=== PATIENT | female | born 1990 | race Caucasian/White ===

== ENCOUNTER 2016-11-03 13:07 | Emergency (ER) | payer MEDICAID ==
[~2016-11-03] VITALS: Ht 172.7 cm; Wt 122.5 kg
[~2016-11-03 13:07] MED LIST: AMOX500C2 PO; CODE-54 PO; FAMO-119 PO; IBP600T1 PO; IBP800T PO; OXYC-12 PO; PNV1TABL9 PO; PREN-115 PO; PROM25TA14 PO; TRM50T PO
--- NOTE | 2016-11-03 15:26 | ED Cough/URI ---
General Chief Complaint: Cough/Cold/Flu Symptoms Stated Complaint: COUGH/CONGESTION/FEVER HEADACHE 28 WKS PREG Nursing Triage Note: PT CO OF COLD COUGH FLU SX SINCE YESTERDAY History of Present Illness Time seen by provider: 15:15 Initial Comments Here with 3-4 day Cough, sore throat, malaise, Sick contacts and fever 102F yesterday. She has taken OTC and APAP. Wants Abx to feel better. She is . No recent Travel or Abx. Allergies and Home Medications Allergies Coded Allergies: No Known Drug Allergies (Unverified , 06/05/12) Home Medications Azithromycin 250 Mg Tablet #6 250 MG PO UD TAKE 2 TABLETS ON DAY ONE THEN TAKE 1 TABLET DAILY FOR FOUR MORE DAYS Prescribed by: IMAN BELTRE on 11/03/16 1552 Famotidine 20 Mg Tablet #10 20 MG PO Q12H Prescribed by: KEYANA PACK on 06/01/162231 Ibuprofen 600 Mg Tab #90 600 MG PO Q6H Prescribed by: VIRI LUNA on 09/14/14 1109 Pnv Cmb#21/Iron/Folic Acid 1 Each Tablet 1 EACH PO (Reported) Promethazine HCl 25 Mg Tablet #10 25 MG PO Q6H PRN PRN NAUSEA/VOMITING Prescribed by: KEYANA PACK on 06/01/162231 Constitutional: No chills, No diaphoresis, fever malaise EENTM: hoarseness nose congestionNo ear discharge, No ear pain, No hearing loss, No mouth pain, No mouth swelling Respiratory: cough (dry)No phlegm, No short of breath, No wheezing Cardiovascular: No chest pain, No edema Gastrointestinal: No abdominal pain, No constipation, No diarrhea, No nausea Genitourinary: No discharge, No dysuria Expected Date of Delivery: January 27, 2017 Skin: No pruritus, No rash Past Jlrvpen-Zkklqt-Qovtsq Hx Patient Social History Alcohol Use: Denies Use Recreational Drug Use: No Smoking Status: Never a Smoker Recent Foreign Travel: No Contact w/Someone Who Travel: No Recent Infectious Disease Expo: No Recent Hopitalizations: Yes (2009 for gb ) Immunizations Up To Date Tetanus Booster (TDap): Less than 5yrs Date of Influenza Vaccine: Aug 03, 2013 Surgeries HX Surgeries: Yes (gavin 2009, D&C) Respiratory Hx Respiratory Disorders: No Cardiovascular Hx Cardiac Disorders: No Neurological Hx Neurological Disorders: No Reproductive System : Yes Hx Reproductive Disorders: No Sexually Transmitted Disease: No HIV/AIDS: No Female Reproductive Disorders: Denies Genitourinary Hx Genitourinary Disorders: No Gastrointestinal Hx Gastrointestinal Disorders: No Musculoskeletal Hx Musculoskeletal Disorders: No Endocrine Hx Endocrine Disorders: No HEENT HX ENT Disorders: No Loss of Vision: Denies Hearing Impairment: Denies Cancer Hx Cancer: No Psychosocial Hx Psychiatric Problems: No Integumentary HX Skin/Integumentary Disorder: No Blood Transfusions Hx Blood Disorders: Yes (low platlets. ) Adverse Reaction to a Blood Tr: No Family Medical History Significant Family History: No Pertinent Family Hx Family Medial History: Cataract MATERNAL GRANDMA Dementia PATERNAL GRANDMA Family history: Arthritis MATERNAL GRANDMA Family history: Asthma 03 FATHER PATERNAL GRANDMA Family history: Diabetes mellitus MATERNAL GRANDMA Family history: Hypertension MATERNAL GRANDMA Hypercholesterolemia MATERNAL GRANDMA No Family History of: Abdominal aortic aneurysm [place]'s disease Alcoholism Aphasia Cancer Cancer of colon Chest pain Congenital heart disease Congestive heart failure Cystic fibrosis Dysphagia Family history: Allergy Family history: Alzheimer's disease Family history: Breast disease Family history: Cardiovascular disease Family history: Coronary thrombosis Family history: Gastrointestinal disease Family history: Glaucoma Family history: Osteoporosis Family history: Thyroid disorder Headache Hearing loss Heart disease Hereditary disease History of - anemia History of - disorder History of - respiratory disease History of drug abuse Human immunodeficiency virus (HIV) seropositivity Infertile Kidney disease Malignant neoplasm of lung Myocardial infarction Parkinson's disease Prostate cancer Psychotic disorder Seizure disorder Stroke Tuberculosis Visual impairment Physical Exam Vital Signs Vital Sign - Last 12Hours 11/03/16 13:20 Temp 97.7 Pulse 101 Resp 18 B/P 111/60 Pulse Ox 98 O2 Delivery Room Air Capillary Refill : Less Than 3 Seconds General Appearance: WD/WN no apparent distress Eyes: Bilateral Eye EOMI, Bilateral Eye Normal Inspection HEENT: TM abnormal (R) (mild injection) pharyngeal erythemaNo tonsillar exudate Neck: non-tender full range of motion supple normal inspection Respiratory: chest non-tender lungs clear normal breath sounds no respiratory distress Cardiovascular: normal peripheral pulses regular rate, rhythm Gastrointestinal: normal bowel sounds non tender soft Skin: normal color warm/dry Progress/Results/Core Measures Results/Orders Micro Results Microbiology 11/03/16 Influenza Types A,B Antigen (TAO) - Final, Complete Vital Signs/I&O Vital Sign - Last 12Hours 11/03/16 11/03/16 11/03/16 13:20 13:20 15:55 Temp 97.7 Pulse 101 94 Resp 18 18 B/P 111/60 Pulse Ox 98 98 O2 Delivery Room Air Blood Pressure Mean: 77 Progress Note : Time: 15:24 Progress Note Typical URI symptoms consistent with virus. Flu was negative. Potential developing right otitis media acute for her scant injection on the right TM. Instructed to wait one or 2 days and if not improving by the third day start antibiotics. Take to completion. Drink plenty of fluids and use conservative therapy. Departure Impression Impression: Primary Impression: Upper respiratory infection Qualified Code: J06.9 - Acute upper respiratory infection, unspecified Disposition: HOME, SELF-CARE Condition: Stable Departure-Patient Inst. Decision time for Depature: 15:49 Referrals: [facility] (PCP/Family) Primary Care Physician Patient Instructions: Cough, Runny Nose, and the Common Cold (DC) Add. Discharge Instructions: You appeared to have a common cold usually this is caused by a virus. you should use vapor rubs, drink plenty of fluids and get a humidifier. Tylenol or Motrin are appropriate if you feel poorly. If this goes on for more than 3 or 4 days then you should fill the antibiotic prescription that was sent for you. If you have new, worsening symptoms you should return to care. Otherwise follow up with your primary care physician as needed. All discharge instructions reviewed with patient and/or family. Voiced understanding. Scripts Azithromycin 250 Mg [id number] Mg PO UD #6 TAB TAKE 2 TABLETS ON DAY ONE THEN TAKE 1 TABLET DAILY FOR FOUR MORE DAYS Prov:IMAN BELTRE 11/03/16 IMAN BELTRE Nov 03, 2016 15:26
[2016-11-03] MEDS ORDERED: AZIT250T5 PO (15:52)
[2016-11-03 15:55] VITALS: BP 114/58
== END 2016-11-03 15:55 | disposition home or self-care (01) ==
LOC: EDUNIT# 13:07 → ER 13:10
DX: O99.513 Diseases of the respiratory system complicating pregnancy, third trimester (principal); J06.9 Acute upper respiratory infection, unspecified; Z3A.28 28 weeks gestation of pregnancy
CPT/HCPCS: 87804; 99283

== ENCOUNTER 2016-12-19 20:37 | Outpatient (CLI) | payer MEDICAID ==
[~2016-12-19] VITALS: Ht 172.7 cm; Wt 124.3 kg
[2016-12-19 20:15] VITALS: BP 123/59
[~2016-12-19 20:37] MED LIST changes: +AZIT250T5 PO
[2016-12-19 21:00] LABS: BILIRUBIN,URINE NEGATIVE (NEGATIVE); KETONES,URINE NEGATIVE (NEGATIVE); LEUKOCYTE ESTERASE ,URINE 2+ (NEGATIVE); NITRITE,URINE NEGATIVE (NEGATIVE); PH,URINE 6 (5-9); PROTEIN,URINE 1+ (NEGATIVE); UROBILINOGEN,URINE NORMAL (NORMAL)
[2016-12-19 21:09] LABS: SQUAMOUS EPITHELIAL CELL,UR 25-50 /HPF; WBC,URINE 25-50 /HPF
[2016-12-19] MEDS ORDERED: NITR-65 PO (21:23)
[2016-12-19] MEDS ORDERED: NITROFURANTOIN 100 MG (MACROBID) CAPSULE PO ONE ×2 (21:26→21:30)
[2016-12-19] MEDS ORDERED: ACETAMINOPHEN 500 MG TAB (TYLENOL) ONE (21:27)
[2016-12-19] MEDS ORDERED: ACETAMINOPHEN 500 MG TAB (TYLENOL) PO ONE (21:30)
[2016-12-19 21:35] VITALS: BP 123/59
--- NOTE | 2016-12-20 13:11 | Physician Query-Final Dx ---
JUANCARLOS RUIZ 12/20/16 1311: Clinic Account Progress/Dx Physician Query: Please give diagnosis Date of Service Dec 19, 2016 at 20:37 MELISA AMBROSE MD 12/29/16 2006: Clinic Account Progress/Dx DIAGNOSIS: Diagnosis Contractions Urinary tract infection JUANCARLOS RUIZ Dec 20, 2016 13:11 MELISA AMBROSE MD Dec 29, 2016 20:06
== END 2016-12-19 21:35 | disposition home or self-care (01) ==
LOC: DELPENDDIS → WSo 20:37 → LDRP 20:38 → WSo 21:35
PROVIDERS: ATTEND Family Medicine
DX: O47.03 False labor before 37 completed weeks of gestation, third trimester (principal); O23.43 Unspecified infection of urinary tract in pregnancy, third trimester; Z3A.34 34 weeks gestation of pregnancy
CPT/HCPCS: 81000; 87088; 99214

== ENCOUNTER 2017-01-24 06:23 | Inpatient (IN) | payer MEDICAID ==
[2017-01-24] VITALS (59 sets, daily range): BP systolic 86–159; BP diastolic 43–85
[~2017-01-24] VITALS: Ht 172.7 cm; Wt 125.3 kg
[~2017-01-24 06:23] MED LIST changes: +NITR-65 PO
[2017-01-24] MEDS ORDERED: D5 LR IV SOLUTION 1,000 ML IV ONE (06:27)
[2017-01-24] MEDS ORDERED: MINERAL OIL CONCENTRATE 99.9% 15 ML UDC TOP PRN (06:45)
[2017-01-24] MEDS: D5 LR IV SOLUTION 1,000 ML IV SCH ×2 (06:53→16:00)
[2017-01-24 07:02] LABS: BASOPHILS % (AUTO) 0 % (0-10); EOSINOPHILS # (AUTO) 0.2 10^3/uL (0.0-0.3); EOSINOPHILS % (AUTO) 2 % (0-10); LYMPHOCYTES # (AUTO) 2.6 X 10^3 (1.0-4.0); LYMPHOCYTES % (AUTO) 32 % (12-44); MEAN CORPUSCULAR HEMOGLOBIN 32 PG (25-34); MEAN CORPUSCULAR HGB CONC 34 G/DL (32-36); MEAN CORPUSCULAR VOLUME 93 FL (80-99); MEAN PLATELET VOLUME 12.6 FL (7.4-10.4); MONOCYTES # (AUTO) 0.6 X 10^3 (0.0-1.0); MONOCYTES % (AUTO) 7 % (0-12); NEUTROPHILS # (AUTO) 4.7 X 10^3 (1.8-7.8); NEUTROPHILS % (AUTO) 58 % (42-75); PLATELET COUNT 125 10^3/uL (130-400); RED BLOOD COUNT 3.93 10^6/uL (4.35-5.85); RED CELL DISTRIBUTION WIDTH 12.8 % (10.0-14.5)
[2017-01-24] MEDS ORDERED: LACTATED RINGERS 1,000 ML IV ONE (07:17)
[2017-01-24] MEDS ORDERED: OXYTOCIN/NORMAL SALINE 500 ML IV SCH ×2 (07:23→19:21)
--- NOTE | 2017-01-24 07:23 | History & Physical-OB ---
OB - Chief Complaint & HPI Date Date of Admission: Date of Admission: January 24, 2017 at 06:23 Chief Complaint/History OB-Reason for Admission/Chief: Induction of Labor Hx : 6 Hx Para: 3 Expected Date of Delivery: January 28, 2017 Gestational Age in Weeks: 39 Gestational Age in Days: 4 Admission Nurse Assessment Rev: Yes History of Labs GBS negative Allergies and Home Medications Allergies Coded Allergies: No Known Drug Allergies (Unverified , 01/24/17) Home Medications Pnv Cmb#21/Iron/Folic Acid 1 Each Tablet, 1 EACH PO, (Reported) OB - History Hx of Present Care: Yes Ultrasounds: Normal mid trimester US Obstetrical Complications: None Medical Complications: None Obstetrical History Hx Termination: No Hx Multiple Gestation: No Hx Stillbirth: No Hx Complication: No Hx Induced Hypertens: No Hx Maternal Gestational Diabet: No Delivery History Hx Dystocia: No Hx Large For Gestational Age I: Yes Hx Small for Gestational Age I: No Hx Section: No Hx Vaginal Delivery Post C-Sec: No Hx Blood Disorders: Yes (low platlets. ) Adverse Rxn to Tranfusion: No Patient Past Medical History No chronic medical problems Social History/Family History HIV/AIDS: No Recent Infectious Disease Expo: No Sexually Transmitted Disease: No Immunizations Hepatitis A: No Hepatitis B: No Tetanus Booster (TDap): Less than 5yrs Date of Influenza Vaccine: Aug 03, 2013 OB - Admission Exam Physical Exam HEENT: Moist Membranes Heart: Rhythm Normal Lungs: Clear Abdomen: Gravid Cervical Dilatation: 2cm Effacement: 50% Station: -3 Membranes: Intact Heart Rate: 140's Accelerations: Accelerations Present Merino Scoring Tool (Modified) Dilation (cm): 1-2cm (1) Effacement (%): 31-51% (1) Descent/Station: -3 (0) Cervix Consistency: Medium(1) Cervix Position: Middle/Mid-Position (1) Add 1 point for: Each previous vaginal delivery (1) Merino Score: 5 Labs Laboratory Tests Test 01/24/17 06:45 Range/Units White Blood Count 8.0 4.3-11.0 10^3/uL Red Blood Count 3.93 L 4.35-5.85 10^6/uL Hemoglobin 12.4 11.5-16.0 G/DL Hematocrit 37 35-52 % Mean Corpuscular Volume 93 80-99 FL Mean Corpuscular Hemoglobin 32 25-34 PG Mean Corpuscular Hemoglobin Concent 34 32-36 G/DL Red Cell Distribution Width 12.8 10.0-14.5 % Platelet Count 125 L 130-400 10^3/uL Mean Platelet Volume 12.6 H 7.4-10.4 FL Neutrophils (%) (Auto) 58 42-75 % Lymphocytes (%) (Auto) 32 12-44 % Monocytes (%) (Auto) 7 0-12 % Eosinophils (%) (Auto) 2 0-10 % Basophils (%) (Auto) 0 0-10 % Neutrophils # (Auto) 4.7 1.8-7.8 X 10^3 Lymphocytes # (Auto) 2.6 1.0-4.0 X 10^3 Monocytes # (Auto) 0.6 0.0-1.0 X 10^3 Eosinophils # (Auto) 0.2 0.0-0.3 10^3/uL Basophils # (Auto) 0.0 0.0-0.1 10^3/uL OB - Assessment/Plan/Diagnosis Assessment Assessment: induction of labor (at 39w4d) Plan Plan: Induction Induction Method: AROM Other Plan desires epidural SUZI CUMMINGS MD January 24, 2017 07:23
[2017-01-24] MEDS ORDERED: BUPIVACAINE 0.25% 30 ML (SENSORCAINE) VIAL ONE (07:55)
[2017-01-24] MEDS ORDERED: SUFENTA 0.6MCG/ML BUPIVA 0.125 100 ML ONE (07:55)
[2017-01-24] MEDS ORDERED: LACTATED RINGERS 1,000 ML IV SCH (08:36)
[2017-01-24] MEDS ORDERED: METOCLOPRAMIDE INJ 10 MG/2 ML (REGLAN) IV PRN (08:45)
[2017-01-24] MEDS ORDERED: EPIDURAL (SUFENTA 0.6MCG/ML BUPIVA 0.125%) 100 ML BAG EPI SCH (08:45)
[2017-01-24] MEDS ORDERED: diphenhydrAMINE 50 MG/ML INJ (BENADRYL) IV PRN (08:45)
[2017-01-24] MEDS ORDERED: ONDANSETRON 4 MG/2 ML (SDV) Z0FRAN IV PRN (08:45)
[2017-01-24] MEDS ORDERED: NALOXONE 0.4 MG/ML 1 ML (NARCAN) VIAL IV PRN ×2 (08:45)
[2017-01-24] MEDS ORDERED: CATHETER FLUSH 10 ML SYR IV SCH (14:00)
--- NOTE | 2017-01-24 19:21 | OB Labor & Delivery Record ---
L&D History Date of Service Date of Service: January 24, 2017 History Expected Date of Delivery: January 28, 2017 Gestational Age in Weeks: 39 Hx : 6 Hx Para: 3 Complications Events: Routine care Operative Indications (Cesarea: N/A-Vaginal Delivery Intrapartal Events: None L&D Stage1 Stage One Onset of Labor - Date: January 24, 2017 Onset of Labor - Time: 07:10 Monitors and Tracing Monitor Mode: Internal Heart Rate: 130 Monitor Accelerations: Uniform Monitor Decelerations: Variable [place] Variability: Average (6-10) Short Term Variability: Present Presentation: Vertex Vital Signs VS - Last 72 Hours, by Label 01/24/17 01/24/17 01/24/17 01/24/17 06:40 08:10 08:15 08:20 Temp 98.5 97.0 Pulse 100 81 83 78 Resp 16 18 18 20 B/P (MAP) 113/61 126/61 115/67 120/65 Pulse Ox 100 100 O2 Delivery Room Air Room Air Room Air Room Air 01/24/17 01/24/17 01/24/17 01/24/17 08:25 08:30 08:35 08:40 Pulse 88 114 98 98 Resp 20 20 20 20 B/P (MAP) 113/65 116/59 117/56 159/63 Pulse Ox 99 100 96 98 O2 Delivery Room Air Room Air Room Air Room Air 01/24/17 01/24/17 01/24/17 01/24/17 08:45 08:50 08:55 09:00 Pulse 96 90 105 101 Resp 20 20 20 20 B/P (MAP) 118/85 112/60 97/64 118/65 Pulse Ox 97 99 99 99 O2 Delivery Room Air Room Air Room Air Room Air 01/24/17 01/24/17 01/24/17 01/24/17 09:15 09:30 09:45 10:00 Pulse 93 75 78 75 Resp 20 20 18 18 B/P (MAP) 140/72 112/52 113/56 90/43 Pulse Ox 98 98 98 98 O2 Delivery Room Air Room Air Room Air Room Air 01/24/17 01/24/17 01/24/17 01/24/17 10:15 10:30 10:45 11:00 Pulse 66 65 82 74 Resp 18 18 18 18 B/P (MAP) 105/52 104/55 101/51 95/50 Pulse Ox 97 97 99 99 O2 Delivery Room Air Room Air Room Air Room Air 01/24/17 01/24/17 01/24/17 01/24/17 11:15 11:30 11:45 12:00 Temp 97.0 Pulse 72 87 69 81 Resp 20 20 20 20 B/P (MAP) 106/58 97/55 112/59 104/56 Pulse Ox 99 99 99 99 O2 Delivery Room Air Room Air Room Air Room Air 01/24/17 01/24/17 01/24/17 01/24/17 12:15 12:30 12:45 13:00 Pulse 80 73 83 78 Resp 20 20 20 20 B/P (MAP) 115/57 115/59 103/55 110/56 Pulse Ox 99 99 99 99 O2 Delivery Room Air Room Air Room Air Room Air 01/24/17 01/24/17 01/24/17 01/24/17 13:15 13:30 13:45 14:00 Temp 97.1 Pulse 81 110 83 81 Resp 20 20 20 18 B/P (MAP) 114/57 119/56 114/57 91/53 Pulse Ox 99 100 98 93 O2 Delivery Room Air Room Air Room Air Room Air 01/24/17 01/24/17 01/24/17 01/24/17 14:15 14:30 14:45 15:00 Pulse 83 73 83 77 Resp 18 18 18 18 B/P (MAP) 95/58 86/49 110/66 106/58 Pulse Ox 93 93 93 93 O2 Delivery Room Air Room Air Room Air Room Air 01/24/17 01/24/17 01/24/17 01/24/17 15:15 15:30 15:45 16:00 Pulse 84 81 71 81 Resp 18 18 18 18 B/P (MAP) 95/51 110/59 114/62 111/53 Pulse Ox 93 93 93 98 O2 Delivery Room Air Room Air Room Air Room Air 01/24/17 01/24/17 01/24/17 01/24/17 16:15 16:30 16:45 17:00 Pulse 81 81 88 88 Resp 18 18 18 18 B/P (MAP) 104/52 113/54 90/68 90/68 Pulse Ox 98 96 98 98 O2 Delivery Room Air Room Air Room Air Room Air 01/24/17 01/24/17 01/24/17 17:30 17:45 18:00 Temp 97.2 Pulse 91 83 78 Resp 20 20 20 B/P (MAP) 116/63 102/57 118/66 Pulse Ox 97 97 97 O2 Delivery Room Air Room Air Room Air Signs of Distress by FHT Signs of Distress no Rupture of Membranes Spontaneous Ruture of Membrane: No Amniotic Membrane Rupture Time: 0710 Amniotic Membrane Fluid Desc.: Clear Induction/Anesthesia Epidural Cath Placement - Time: 16 L&D Stage2 Stage Two Stage II Date: January 24, 2017 Stage II Time: 19:02 Monitors and Tracing Monitor Mode: Internal Heart Rate: 130 Monitor Accelerations: Uniform Monitor Decelerations: Variable Alf Variability: Average (6-10) Short Term Variability: Present Position: Left Occiput Anterior Presentation: Vertex Signs of Distress by FHT Signs of Distress no Cord Descript/Complications Cord Vessel Description: 3 Vessels Delivery Type Delivery Method: Spontaneous Vaginal Anterior Shoulder: Left Episiotomy/Perineal Laceration Laceraction(s)/Extensions: No Condition of Infant Delivery 1 minute Comment: 8 5 minute Comment: 9 Condition of Infant Condition of Infant: Living Exam: No Observed Abnormalities Resuscitation Resuscitation: N/A - Spontaneous Resp L&D Stage3 Stage Three Stage III Date: January 24, 2017 Stage III Time: 19:07 Pictocin Pitocin ml/hr: 125 Placenta Delivery Placenta Delivery: Spontaneous Delivery Summary Summary Vaginal blood loss >500ml: No 200cc Condition of Delivery Examined: Cervix Examined Post Hemorrhage: No SUZI CUMMINGS MD January 24, 2017 19:21
[2017-01-24] MEDS ORDERED: BENZOCAINE/MENTHOL (DERMOPLAST) 56 ML CAN TP PRN (19:30)
[2017-01-24] MEDS ORDERED: MEASLES,MUMPS,RUBELLA 1 EA INJ SQ ONE (19:30)
[2017-01-24] MEDS ORDERED: HYDROcodone/APAP 5 MG/325 MG (LORTAB) TAB PO PRN (19:30)
[2017-01-24] MEDS ORDERED: TETANUS,DIPTH,PERTUSS P/F (BOOSTRIX) 0.5 ML VIAL IM ONE (19:30)
[2017-01-24] MEDS ORDERED: WITCH HAZEL(TUCKS) 40 EA JAR TOP PRN (19:30)
[2017-01-24] MEDS: IBUPROFEN 600 MG (MOTRIN) TAB PO SCH (20:44)
[2017-01-25 02:55] VITALS: BP 103/65
[2017-01-25] MEDS: IBUPROFEN 600 MG (MOTRIN) TAB PO SCH ×4 (03:31→20:17)
[2017-01-25 05:47] LABS: BASOPHILS % (AUTO) 0 % (0-10); EOSINOPHILS # (AUTO) 0.1 10^3/uL (0.0-0.3); EOSINOPHILS % (AUTO) 1 % (0-10); LYMPHOCYTES # (AUTO) 1.7 X 10^3 (1.0-4.0); LYMPHOCYTES % (AUTO) 14 % (12-44); MEAN CORPUSCULAR HEMOGLOBIN 32 PG (25-34); MEAN CORPUSCULAR HGB CONC 34 G/DL (32-36); MEAN CORPUSCULAR VOLUME 94 FL (80-99); MEAN PLATELET VOLUME 12.6 FL (7.4-10.4); MONOCYTES # (AUTO) 1.2 X 10^3 (0.0-1.0); MONOCYTES % (AUTO) 10 % (0-12); NEUTROPHILS # (AUTO) 8.9 X 10^3 (1.8-7.8); NEUTROPHILS % (AUTO) 75 % (42-75); PLATELET COUNT 100 10^3/uL (130-400); RED BLOOD COUNT 3.47 10^6/uL (4.35-5.85); RED CELL DISTRIBUTION WIDTH 12.8 % (10.0-14.5); WHITE BLOOD COUNT 11.9 10^3/uL (4.3-11.0)
[2017-01-25 06:45] VITALS: BP 96/58
--- NOTE | 2017-01-25 07:39 | Progress Note (SOAP) ---
Subjective Subjective/Events-last exam Mother has no current complaints. Her vaginal bleeding is minimal Objective Exam Vital Signs Date Time Temp Pulse Resp B/P (MAP) Pulse Ox O2 Delivery O2 Flow Rate FiO2 01/25/17 02:55 97.8 88 20 103/65 Room Air 01/24/17 21:30 100 20 108/59 98 Room Air 01/24/17 20:45 82 18 108/55 Room Air 01/24/17 20:25 67 20 105/65 01/24/17 20:15 88 18 111/64 01/24/17 20:00 83 20 127/73 Room Air 01/24/17 19:45 97.5 77 20 100/52 Room Air 01/24/17 19:35 98 20 121/58 01/24/17 19:15 97.1 81 18 114/58 96 Room Air 01/24/17 19:00 90 18 130/70 96 Room Air 01/24/17 18:45 85 18 116/63 96 Room Air 01/24/17 18:30 74 18 118/55 96 Room Air 01/24/17 18:15 80 20 115/62 96 Room Air 01/24/17 18:00 78 20 118/66 97 Room Air 01/24/17 17:45 83 20 102/57 97 Room Air 01/24/17 17:30 97.2 91 20 116/63 97 Room Air 01/24/17 17:00 88 18 90/68 98 Room Air 01/24/17 16:45 88 18 90/68 98 Room Air 01/24/17 16:30 81 18 113/54 96 Room Air 01/24/17 16:15 81 18 104/52 98 Room Air 01/24/17 16:00 81 18 111/53 98 Room Air 01/24/17 15:45 71 18 114/62 93 Room Air 01/24/17 15:30 81 18 110/59 93 Room Air 01/24/17 15:15 84 18 95/51 93 Room Air 01/24/17 15:00 77 18 106/58 93 Room Air 01/24/17 14:45 83 18 110/66 93 Room Air 01/24/17 14:30 73 18 86/49 93 Room Air 01/24/17 14:15 83 18 95/58 93 Room Air 01/24/17 14:00 97.1 81 18 91/53 93 Room Air 01/24/17 13:45 83 20 114/57 98 Room Air 01/24/17 13:30 110 20 119/56 100 Room Air 01/24/17 13:15 81 20 114/57 99 Room Air 01/24/17 13:00 78 20 110/56 99 Room Air 01/24/17 12:45 83 20 103/55 99 Room Air 01/24/17 12:30 73 20 115/59 99 Room Air 01/24/17 12:15 80 20 115/57 99 Room Air 01/24/17 12:00 97.0 81 20 104/56 99 Room Air 01/24/17 11:45 69 20 112/59 99 Room Air 01/24/17 11:30 87 20 97/55 99 Room Air 01/24/17 11:15 72 20 106/58 99 Room Air 01/24/17 11:00 74 18 95/50 99 Room Air 01/24/17 10:45 82 18 101/51 99 Room Air 01/24/17 10:30 65 18 104/55 97 Room Air 01/24/17 10:15 66 18 105/52 97 Room Air 01/24/17 10:00 75 18 90/43 98 Room Air 01/24/17 09:45 78 18 113/56 98 Room Air 01/24/17 09:30 75 20 112/52 98 Room Air 01/24/17 09:15 93 20 140/72 98 Room Air 01/24/17 09:00 101 20 118/65 99 Room Air 01/24/17 08:55 105 20 97/64 99 Room Air 01/24/17 08:50 90 20 112/60 99 Room Air 01/24/17 08:45 96 20 118/85 97 Room Air 01/24/17 08:40 98 20 159/63 98 Room Air 01/24/17 08:35 98 20 117/56 96 Room Air 01/24/17 08:30 114 20 116/59 100 Room Air 01/24/17 08:25 88 20 113/65 99 Room Air 01/24/17 08:20 78 20 120/65 100 Room Air 01/24/17 08:15 83 18 115/67 100 Room Air 01/24/17 08:10 97.0 81 18 126/61 Room Air I & O 01/25/17 07:00 Intake Total 1140 ml Balance 1140 ml Capillary Refill : General Appearance: No Apparent Distress Respiratory: Lungs Clear Gastrointestinal: soft (With firm uterus) Results Lab Laboratory Tests 01/25/17 05:23: White Blood Count 11.9H, Red Blood Count 3.47L, Hemoglobin 11.0L, Hematocrit 33L , Mean Corpuscular Volume 94, Mean Corpuscular Hemoglobin 32, Mean Corpuscular Hemoglobin Concent 34, Red Cell Distribution Width 12.8, Platelet Count 100L, Mean Platelet Volume 12.6H, Neutrophils (%) (Auto) 75, Lymphocytes (%) (Auto) 14 , Monocytes (%) (Auto) 10, Eosinophils (%) (Auto) 1, Basophils (%) (Auto) 0, Neutrophils # (Auto) 8.9H, Lymphocytes # (Auto) 1.7, Monocytes # (Auto) 1.2H, Eosinophils # (Auto) 0.1, Basophils # (Auto) 0.0 Assessment/Plan Assessment/Plan Assess & Plan/Chief Complaint 1. Status post spontaneous vaginal delivery at 39 weeks gestation -Hemoglobin stable -Continue routine care orders -Suspect home in the morning of January 26, 2017 Clinical Quality Measures DVT/VTE Risk/Contraindication: Risk Factor Score Per Nursin RFS Level Per Nursing on Admit: 2=Moderate SUZI CUMMINGS MD January 25, 2017 07:39
[2017-01-25] MEDS: CATHETER FLUSH 10 ML SYR IV SCH ×2 (08:57→15:13)
[2017-01-25] MEDS: PRENATAL VITAMIN 1 EA TAB PO SCH (09:40)
--- NOTE | 2017-01-25 13:04 | Anesthesia-Regional Post-Op ---
Regional Patient Condition Mental Status: Alert, Oriented x3 Circulation: Same as Pre-Op Headache: Absent Sensation: Full Recovery Motor Block: Absent Post Op Complications Complications None Follow Up Care/Instructions Patient Instructions None needed. Anesthesia/Patient Condition Patient is doing well, no complaints, stable vital signs, no apparent adverse anesthesia problems. No complications reported per nursing. MC JARAMILLO CRNA January 25, 2017 13:04
[2017-01-25 15:02] VITALS: BP 99/62
[2017-01-25 20:00] VITALS: BP 118/71
[2017-01-26 02:00] VITALS: BP 113/65
[2017-01-26] MEDS: IBUPROFEN 600 MG (MOTRIN) TAB PO SCH ×2 (02:09→08:02)
[2017-01-26 08:00] VITALS: BP 112/69
[2017-01-26] MEDS: PRENATAL VITAMIN 1 EA TAB PO SCH (08:02)
--- NOTE | 2017-01-26 08:03 | Discharge Summary ---
Diagnosis/Chief Complaint Date of Admission January 24, 2017 at 06:23 Date of Discharge January 26, 2017 Admission Diagnosis Admission Diagnosis 1. IUP at 39weeks Discharge Diagnosis 1. IUP at 39weeks Chief Complaint/HPI Chief Complaint/HPI 26 yo G6 now T4 L4 who initially presented at 39w4d gestation for induction of labor. Her EDC noted to be 01/28/2017. She had occasional contraction on admission. Discharge Summary-OBS Procedures 1. Epidural per anesthesia 2. Spontaneous vaginal delivery Discharge Physical Examination Allergies: Coded Allergies: No Known Drug Allergies (Unverified , 01/24/17) Vitals & I&Os Intake and Output 01/26/17 00:00 Intake Total 1200 ml Balance 1200 ml Vital Sign - Last 12Hours Date Time Temp Pulse Resp B/P (MAP) Pulse Ox O2 Delivery O2 Flow Rate FiO2 01/26/17 02:00 98.2 97 16 113/65 83 Room Air General Appearance: No Acute Distress Respiratory: Clear to Auscultation Cardiovascular: Regular Rate Abdominal: Soft (with uterus firm) Hospital Course see progress notes Discharge Instructions to patient/family Please see electonic discharge instructions given to patient. Discharge Medications Reviewed and agree with Discharge Medication list on patient's Discharge Instruction sheet Clinical Quality Measures DVT/VTE Risk/Contraindication: Risk Factor Score Per Nursin RFS Level Per Nursing on Admit: 2=Moderate SUZI CUMMINGS MD January 26, 2017 08:03
[2017-01-26] MEDS ORDERED: HYDR-3812 PO (08:05)
[2017-01-26] MEDS ORDERED: IBUP-1773 PO (08:05)
--- NOTE | 2017-01-26 08:06 | Discharge Inst-Women's Service ---
Discharge Inst-Women's Serv Depart Medication/Instructions New, Converted or Re-Newed RX: RX on Chart Consults/Follow Up Additional Follow Up: Yes (with Dr Cummings in 6 weeks.) Activity Activity: Activity as Tolerated Driving Instructions: You May Drive Nothing Inside Vagina: No [place] (for 6 weeks.) Diet Discharge Diet: Regular Diet Return to The Hospital For: as below Symptoms to Report to : Bleeding Excessive, Pain Increased, Fever Over 101 Degrees F, Vaginal Discharge Foul For Any Problems or Questions: Contact Your Physician, Go to Emergency Room SUZI CUMMINGS MD January 26, 2017 08:06
== END 2017-01-26 09:10 | disposition home or self-care (01) | DRG 775 ==
LOC: LDRP 06:23
PROVIDERS: ADMIT Family Medicine; ATTEND Family Medicine
PROC: 10E0XZZ Delivery of Products of Conception, External Approach (ICD-10-PCS; principal; 2017-01-24)
DX: O80 Encounter for full-term uncomplicated delivery (principal); Z3A.39 39 weeks gestation of pregnancy; Z37.0 Single live birth
CPT/HCPCS: 36415; 85025; 86850; 86900; 86901

== ENCOUNTER 2018-09-10 18:08 | Outpatient (CLI) | payer MEDICAID ==
[~2018-09-10] VITALS: Ht 172.7 cm; Wt 125.2 kg
[~2018-09-10 18:08] MED LIST changes: +ACHD5005 PO; +AZIT250T12 PO; -AZIT250T5 PO; +IBUP-1773 PO
[2018-09-10 18:25] VITALS: BP 118/69
[2018-09-10 18:41] LABS: BILIRUBIN,URINE NEGATIVE (NEGATIVE); CLARITY,URINE VERY CLOUDY; COLOR,URINE AMBER; GLUCOSE, URINE (UA) NEGATIVE (NEGATIVE); KETONES,URINE 4+ (NEGATIVE); LEUKOCYTE ESTERASE ,URINE 2+ (NEGATIVE); NITRITE,URINE POSITIVE (NEGATIVE); PH,URINE 5 (5-9); PROTEIN,URINE 3+ (NEGATIVE); UROBILINOGEN,URINE NORMAL (NORMAL)
[2018-09-10] MEDS ORDERED: PREN1TAB79 PO (18:54)
[2018-09-10 19:14] LABS: BACTERIA,URINE FEW /HPF; RBC,URINE TNTC /HPF
[2018-09-10] MEDS ORDERED: NS IV 1000 ML 1,000 ML ONE (19:15)
[2018-09-10] MEDS ORDERED: NS IV 1000 ML 1,000 ML IV ONE (19:15)
[2018-09-11] MEDS ORDERED: FLU QUADRIvalent (5+ YOA) 2018-2019 (AFLURIA) 0.5 ML IM ONE (07:00)
== END 2018-09-10 20:45 | disposition home or self-care (01) ==
LOC: LDRP 18:08 → WSo 18:08
PROVIDERS: ATTEND Family Medicine
DX: O99.89 Other specified diseases and conditions complicating pregnancy, childbirth and the puerperium (principal); N89.8 Other specified noninflammatory disorders of vagina; Z3A.32 32 weeks gestation of pregnancy
CPT/HCPCS: 81000; 87088; 96360; 99214

== ENCOUNTER 2018-09-17 13:07 | Outpatient (CLI) | payer MEDICAID ==
[~2018-09-17] VITALS: Ht 172.7 cm; Wt 127.0 kg
[~2018-09-17 13:07] MED LIST changes: +PREN1TAB79 PO
[2018-09-17 13:35] VITALS: BP 118/63
[2018-09-17 13:44] LABS: BILIRUBIN,URINE NEGATIVE (NEGATIVE); CLARITY,URINE CLEAR; COLOR,URINE YELLOW; GLUCOSE, URINE (UA) NEGATIVE (NEGATIVE); KETONES,URINE NEGATIVE (NEGATIVE); LEUKOCYTE ESTERASE ,URINE 1+ (NEGATIVE); NITRITE,URINE NEGATIVE (NEGATIVE); PH,URINE 6.5 (5-9); PROTEIN,URINE 1+ (NEGATIVE); UROBILINOGEN,URINE NORMAL (NORMAL)
[2018-09-17 13:55] LABS: BACTERIA,URINE NEGATIVE /HPF
[2018-09-17] MEDS ORDERED: ACETAMINOPHEN 500 MG TAB (TYLENOL) PO ONE (15:15)
[2018-09-17] MEDS ORDERED: FLU QUADRIvalent (5+ YOA) 2018-2019 (AFLURIA) 0.5 ML IM ONE (16:30)
== END 2018-09-17 16:30 | disposition home or self-care (01) ==
LOC: LDRP 13:07 → WSo 13:07
PROVIDERS: ATTEND Family Medicine
DX: O99.89 Other specified diseases and conditions complicating pregnancy, childbirth and the puerperium (principal); R10.2 Pelvic and perineal pain; Z3A.33 33 weeks gestation of pregnancy
CPT/HCPCS: 81000; 99213

== ENCOUNTER 2018-10-31 05:30 | Inpatient (IN) | payer MEDICAID ==
[2018-10-31] VITALS (54 sets, daily range): BP systolic 90–129; BP diastolic 43–84
[~2018-10-31] VITALS: Ht 172.7 cm; Wt 128.1 kg
--- NOTE | 2018-10-31 05:58 | NUR ---
ELIJAH QUINTEROS presented to unit via ambulatory from ED, accompanied by s.o., with c/o INDUCTION. ELIJAH QUINTEROS weighed, gowned, voided, and to bed. EFHM and TOCO applied, VS taken. ELIJAH QUINTEROS oriented to bed controls, call light, TV, heat, and A/C controls.
[2018-10-31] MEDS ORDERED: AMPICILLIN FOR IV USE 2,000 MG in NS (IVPB) 50 ML IV SCH (05:59)
[2018-10-31] MEDS ORDERED: D5 LR IV SOLUTION 1,000 ML IV SCH (05:59)
[2018-10-31] MEDS ORDERED: MINERAL OIL CONCENTRATE 99.9% 15 ML UDC TOP PRN (06:00)
[2018-10-31] MEDS ORDERED: CATHETER FLUSH 10 ML SYR IV SCH ×2 (06:00→22:00)
[2018-10-31] MEDS ORDERED: D5 LR IV SOLUTION 1,000 ML IV ONE (06:11)
[2018-10-31 06:32] LABS: BASOPHILS % (AUTO) 0 % (0-10); EOSINOPHILS # (AUTO) 0.1 10^3/uL (0.0-0.3); EOSINOPHILS % (AUTO) 1 % (0-10); HEMATOCRIT 32 % (35-52); HEMOGLOBIN 10.4 G/DL (11.5-16.0); LYMPHOCYTES # (AUTO) 2.4 X 10^3 (1.0-4.0); LYMPHOCYTES % (AUTO) 32 % (12-44); MEAN CORPUSCULAR HEMOGLOBIN 30 PG (25-34); MEAN CORPUSCULAR HGB CONC 33 G/DL (32-36); MEAN CORPUSCULAR VOLUME 91 FL (80-99); MEAN PLATELET VOLUME 11.6 FL (7.4-10.4); MONOCYTES # (AUTO) 0.5 X 10^3 (0.0-1.0); MONOCYTES % (AUTO) 7 % (0-12); NEUTROPHILS # (AUTO) 4.6 X 10^3 (1.8-7.8); NEUTROPHILS % (AUTO) 61 % (42-75); PLATELET COUNT 133 10^3/uL (130-400); RED CELL DISTRIBUTION WIDTH 14.9 % (10.0-14.5); WHITE BLOOD COUNT 7.6 10^3/uL (4.3-11.0)
--- NOTE | 2018-10-31 07:07 | History & Physical-OB ---
OB - Chief Complaint & HPI Date/Time Date of Admission: Date of Admission: Oct 31, 2018 at 05:53 Date seen by a Provider: Oct 31, 2018 Time Seen by a Provider: 07:00 Chief Complaint/History OB-Reason for Admission/Chief: Induction of Labor Hx : 7 Hx Para: 6 Expected Date of Delivery: Nov 04, 2018 Gestational Age in Weeks: 39 Gestational Age in Days: 3 Admission Nurse Assessment Rev: Yes History of Labs GBS positive Allergies and Home Medications Allergies Coded Allergies: No Known Drug Allergies (Unverified , 10/31/18) Home Medications Vit W-Ca,Fe,FA(<1 mg) 1 Each Tablet, 1 EACH PO DAILY, (Reported) Patient Home Medication List Home Medication List Reviewed: Yes OB - History Hx of Present Care: Yes Ultrasounds: Normal mid trimester US Obstetrical Complications: None Medical Complications: None Obstetrical History Hx Termination: No Hx Multiple Gestation: No Hx Stillbirth: No Hx Complication: No Hx Induced Hypertens: No Hx Maternal Gestational Diabet: No Delivery History Hx Dystocia: No Hx Large For Gestational Age I: Yes Hx Small for Gestational Age I: No Hx Section: No Hx Vaginal Delivery Post C-Sec: No Hx Blood Disorders: Yes (low platlets. ) Adverse Rxn to Tranfusion: No Patient Past Medical History No chronic medical problems Social History/Family History HIV/AIDS: No Sexually Transmitted Disease: No Immunizations Hepatitis A: No Hepatitis B: No Tetanus Booster (TDap): Less than 5yrs Date of Influenza Vaccine: Aug 03, 2013 OB - Admission Exam Physical Exam HEENT: Moist Membranes Heart: Rhythm Normal Lungs: Clear Abdomen: Gravid Extremities: Normal Cervical Dilatation: 1cm Effacement: 50% Station: -3 Membranes: Intact Heart Rate: 140's Accelerations: Accelerations Present Short Term Variability: Present Fpc Variability: Average (6-25) Contractions on Admission: < 5 Minutes Apart Intensity: Mild Merino Scoring Tool (Modified) Dilation (cm): 1-2cm (1) Effacement (%): 31-51% (1) Descent/Station: -3 (0) Cervix Consistency: Medium(1) Cervix Position: Middle/Mid-Position (1) Add 1 point for: Each previous vaginal delivery (1) Labs Laboratory Tests Test 10/31/18 06:20 Range/Units White Blood Count 7.6 4.3-11.0 10^3/uL Red Blood Count 3.53 L 4.35-5.85 10^6/uL Hemoglobin 10.4 L 11.5-16.0 G/DL Hematocrit 32 L 35-52 % Mean Corpuscular Volume 91 80-99 FL Mean Corpuscular Hemoglobin 30 25-34 PG Mean Corpuscular Hemoglobin Concent 33 32-36 G/DL Red Cell Distribution Width 14.9 H 10.0-14.5 % Platelet Count 133 130-400 10^3/uL Mean Platelet Volume 11.6 H 7.4-10.4 FL Neutrophils (%) (Auto) 61 42-75 % Lymphocytes (%) (Auto) 32 12-44 % Monocytes (%) (Auto) 7 0-12 % Eosinophils (%) (Auto) 1 0-10 % Basophils (%) (Auto) 0 0-10 % Neutrophils # (Auto) 4.6 1.8-7.8 X 10^3 Lymphocytes # (Auto) 2.4 1.0-4.0 X 10^3 Monocytes # (Auto) 0.5 0.0-1.0 X 10^3 Eosinophils # (Auto) 0.1 0.0-0.3 10^3/uL Basophils # (Auto) 0.0 0.0-0.1 10^3/uL OB - Assessment/Plan/Diagnosis Assessment Assessment: induction of labor Admission Dx 1. IUP at term 39w3d gestation Admission Status: Inpatient Order (span 2 midnights) Reason for Inpatient Admission: L&D Plan Plan: Induction Induction Method: AROM Other Plan -Ampicillin for GBS -Pitocin as needed -desires epidural SUZI CUMMINGS MD Oct 31, 2018 07:07
--- NOTE | 2018-10-31 07:08 | NUR ---
Report to Bryn FUNK at this time.
[2018-10-31] MEDS: OXYTOCIN/NORMAL SALINE 500 ML IV SCH ×2 (07:27→07:28)
[2018-10-31] MEDS ORDERED: SUFENTA 0.6MCG/ML BUPIVA 0.125 100 ML ONE (09:33)
[2018-10-31] MEDS ORDERED: fentaNYL INJECTION 100 MCG/2 ML AMP ONE (10:08)
[2018-10-31] MEDS ORDERED: LACTATED RINGERS 1,000 ML IV ONE (11:29)
[2018-10-31] MEDS ORDERED: NALOXONE 0.4 MG/ML 1 ML (NARCAN) VIAL IV PRN ×2 (11:30)
[2018-10-31] MEDS ORDERED: ONDANSETRON 4 MG/2 ML (SDV) Z0FRAN IV PRN (11:30)
[2018-10-31] MEDS ORDERED: METOCLOPRAMIDE INJ 10 MG/2 ML (REGLAN) IV PRN (11:30)
[2018-10-31] MEDS ORDERED: EPIDURAL (SUFENTA 0.6MCG/ML BUPIVA 0.125%) 100 ML BAG EPI PRN (11:30)
[2018-10-31] MEDS ORDERED: diphenhydrAMINE 50 MG/ML INJ (BENADRYL) IV PRN (11:30)
[2018-10-31] MEDS: AMPICILLIN IV SCH ×4 (11:57→15:48)
[2018-10-31] MEDS: NS IV SCH ×4 (11:57→15:48)
[2018-10-31] MEDS ORDERED: MEPIVACAINE (CARBOCAINE) 2% 50 ML VIAL ONE (14:05)
[2018-10-31] MEDS ORDERED: BUPIVACAINE 0.25% 30 ML (SENSORCAINE) VIAL ONE (17:10)
[2018-10-31] MEDS ORDERED: LIDOCAINE PF 2% 5 ML (XYLOCAINE) VIAL ONE (17:25)
[2018-10-31] MEDS ORDERED: OXYTOCIN/NORMAL SALINE 500 ML IV SCH (18:34)
--- NOTE | 2018-10-31 18:34 | OB Labor & Delivery Record ---
L&D History Date of Service Date of Service: Oct 31, 2018 History Expected Date of Delivery: Nov 04, 2018 Gestational Age in Weeks: 39 Hx : 7 Hx Para: 7 Complications Events: Routine care Operative Indications (Cesarea: N/A-Vaginal Delivery Intrapartal Events: None Other Complications GBS positive treated with ampicillin L&D Stage1 Stage One Onset of Labor - Date: Oct 31, 2018 Onset of Labor - Time: 07:08 Monitors and Tracing Monitor Mode: Internal Heart Rate: 140 Monitor Accelerations: Uniform Monitor Decelerations: None Station: -2 Jail Variability: Average (6-10) Short Term Variability: Present Presentation: Vertex Vital Signs VS - Last 72 Hours, by Label 10/31/18 10/31/18 10/31/18 10/31/18 07:30 07:45 08:00 08:15 Pulse 106 85 74 83 Resp 16 B/P (MAP) 109/58 (75) 98/51 (67) 102/57 (72) 106/61 (76) O2 Delivery Room Air 10/31/18 10/31/18 10/31/18 10/31/18 08:30 08:45 09:00 09:15 Pulse 61 81 86 Resp 16 B/P (MAP) 115/52 (73) 99/49 (66) 113/53 (73) 113/65 (81) O2 Delivery Room Air Room Air Room Air 10/31/18 10/31/18 10/31/18 10/31/18 09:30 09:45 10:00 10:15 Temp 97.5 Pulse 86 84 74 90 B/P (MAP) 123/65 (84) 99/46 (63) 109/79 (89) 113/64 (80) O2 Delivery Room Air Room Air Room Air Room Air 10/31/18 10/31/18 10/31/18 10/31/18 10:27 10:32 10:36 10:37 Pulse 81 123 90 81 Resp 20 B/P (MAP) 115/62 (79) 120/84 (96) 125/58 (80) 122/60 (80) Pulse Ox 100 100 100 99 O2 Delivery Room Air Room Air Room Air Room Air 10/31/18 10/31/18 10/31/18 10/31/18 10:43 11:00 11:15 11:30 Pulse 91 83 90 99 Resp 18 B/P (MAP) 114/58 (76) 97/55 (69) 93/55 (68) 90/43 (59) Pulse Ox 99 99 O2 Delivery Room Air Room Air Room Air Room Air 10/31/18 10/31/18 10/31/18 10/31/18 11:45 12:00 12:15 12:30 Temp 98.0 Pulse 81 64 71 71 Resp 18 18 18 18 B/P (MAP) 106/60 (75) 104/67 (79) 112/58 (76) 115/55 (75) O2 Delivery Room Air Room Air Room Air Room Air 10/31/18 10/31/18 10/31/18 10/31/18 12:45 13:00 13:15 13:30 Temp 97.5 97.5 Pulse 80 101 102 102 Resp 18 B/P (MAP) 116/58 (77) 104/51 (68) 105/57 (73) 105/57 (73) O2 Delivery Room Air Room Air Room Air Room Air 10/31/18 10/31/18 10/31/18 10/31/18 13:45 14:00 14:15 14:30 Pulse 80 73 100 83 B/P (MAP) 117/58 (77) 116/59 (78) 112/60 (77) 104/64 (77) O2 Delivery Room Air Room Air Room Air Room Air 10/31/18 10/31/18 10/31/18 10/31/18 14:45 15:00 15:15 15:30 Pulse 94 98 93 78 Resp 12 B/P (MAP) 96/54 (68) 113/58 (76) 115/56 (75) 109/60 (76) Pulse Ox 100 100 99 O2 Delivery Room Air Room Air Room Air 10/31/18 10/31/18 10/31/18 10/31/18 15:45 16:00 16:15 16:30 Pulse 90 92 85 81 Resp 16 B/P (MAP) 118/59 (78) 115/58 (77) 107/51 (69) 116/60 (78) Pulse Ox 98 99 99 99 O2 Delivery Room Air Room Air Room Air Room Air 10/31/18 10/31/18 10/31/18 10/31/18 16:45 17:00 17:15 17:30 Pulse 81 86 94 94 B/P (MAP) 116/60 (78) 114/59 (77) 129/63 (85) 129/63 (85) Pulse Ox 99 100 100 100 O2 Delivery Room Air Room Air Room Air Room Air 10/31/18 10/31/18 17:45 18:00 Pulse 94 111 B/P (MAP) 129/63 (85) 101/57 (72) Pulse Ox 100 100 O2 Delivery Room Air Room Air Signs of Distress by FHT Signs of Distress no Rupture of Membranes Spontaneous Ruture of Membrane: No Amniotic Membrane Rupture Time: 707 Amniotic Membrane Fluid Desc.: Clear Amniotic Fluid Membrane Tests: Nitrazine Positive Induction/Anesthesia Epidural Cath Placement - Time: 1032 L&D Stage2 Stage Two Stage II Date: Oct 31, 2018 Stage II Time: 18:13 Monitors and Tracing Monitor Mode: External Heart Rate: 140 Monitor Accelerations: Uniform Monitor Decelerations: None Investment Broker Variability: Average (6-10) Short Term Variability: Present Position: Right Occiput Anterior Presentation: Vertex Signs of Distress by FHT Signs of Distress no Cord Descript/Complications Cord Vessel Description: 3 Vessels Delivery Type Delivery Method: Spontaneous Vaginal Anterior Shoulder: Right Episiotomy/Perineal Laceration Laceraction(s)/Extensions: No Condition of Delivery 1 minute Comment: 9 5 minute Comment: 9 Condition of Condition of Infant: Living Exam: No Observed Abnormalities Resuscitation Resuscitation: N/A - Spontaneous Resp L&D Stage3 Stage Three Stage III Date: Oct 31, 2018 Stage III Time: 18:19 Pictocin Pitocin Administration mu/min: 30 Pitocin ml/hr: 30 Placenta Delivery Placenta Delivery: Spontaneous Delivery Summary Summary Estimated blood loss (mL): 250 Condition of Delivery Examined: Cervix Examined Post Hemorrhage: No Intervention Required none SUZI CUMMINGS MD Oct 31, 2018 18:33
[2018-10-31] MEDS ORDERED: MEASLES,MUMPS,RUBELLA 1 EA INJ SQ ONE (18:45)
[2018-10-31] MEDS ORDERED: BENZOCAINE/MENTHOL (DERMOPLAST) 56 ML CAN TP PRN (18:45)
[2018-10-31] MEDS ORDERED: WITCH HAZEL(TUCKS) 40 EA JAR TOP PRN (18:45)
[2018-10-31] MEDS ORDERED: HYDROcodone/APAP 5 MG/325 MG (LORTAB) TAB PO PRN (18:45)
[2018-10-31] MEDS ORDERED: TETANUS,DIPTH,PERTUSS P/F (BOOSTRIX) 0.5 ML VIAL IM ONE (18:45)
--- NOTE | 2018-10-31 19:00 | NUR ---
181 Spontaneous vaginal delivery without epis or lacerations by Dr Kovacs.. Placenta delivered at 1819. Pitocin infusing @ 125/mr. Mom and baby doing well. See labor flow sheet and delivery record.
--- NOTE | 2018-10-31 20:30 | NUR ---
This RN to room to transfer pt to room 310. Pt sitting up in bed. Epidural catheter removed from back. blue tip intact, bandaid applied to site. Ulisses care done. FF u/0. Moderate rubra. vpad and panties on. gown changed. pt able to move legs well. transfers easily to . Pt moved to room 310 per accompanied by this rn, so, , and toddler. Pt up to br in room 310. successfully voids, ulisses care explained, and back to bed. Pt oriented to room. sandwich tray given. denies needs at this time. will monitor.
[2018-10-31] MEDS: IBUPROFEN 600 MG (MOTRIN) TAB PO SCH (21:05)
[2018-11-01 00:20] VITALS: BP 95/51
[2018-11-01 03:11] VITALS: BP 97/49
[2018-11-01] MEDS: IBUPROFEN 600 MG (MOTRIN) TAB PO SCH ×3 (03:11→15:10)
[2018-11-01 06:04] LABS: BASOPHILS % (AUTO) 0 % (0-10); EOSINOPHILS # (AUTO) 0.1 10^3/uL (0.0-0.3); EOSINOPHILS % (AUTO) 1 % (0-10); HEMATOCRIT 29 % (35-52); HEMOGLOBIN 9.5 G/DL (11.5-16.0); LYMPHOCYTES # (AUTO) 2.2 X 10^3 (1.0-4.0); LYMPHOCYTES % (AUTO) 24 % (12-44); MEAN CORPUSCULAR HEMOGLOBIN 30 PG (25-34); MEAN CORPUSCULAR HGB CONC 32 G/DL (32-36); MEAN CORPUSCULAR VOLUME 91 FL (80-99); MEAN PLATELET VOLUME 11.6 FL (7.4-10.4); MONOCYTES # (AUTO) 0.8 X 10^3 (0.0-1.0); MONOCYTES % (AUTO) 8 % (0-12); NEUTROPHILS # (AUTO) 6.1 X 10^3 (1.8-7.8); NEUTROPHILS % (AUTO) 67 % (42-75); PLATELET COUNT 109 10^3/uL (130-400); RED CELL DISTRIBUTION WIDTH 14.9 % (10.0-14.5); WHITE BLOOD COUNT 9.1 10^3/uL (4.3-11.0)
--- NOTE | 2018-11-01 07:33 | Discharge Summary ---
Diagnosis/Chief Complaint Date of Admission Oct 31, 2018 at 05:53 Date of Discharge November 01, 2018 Admission Diagnosis Admission Diagnosis 1. Intrauterine at 39 weeks Discharge Diagnosis 1. Intrauterine at 39 weeks Chief Complaint/HPI Chief Complaint/HPI 27-year-old 7 now term 7 female who initially presented in the morning of October 31, 2018 for induction of labor at 39 weeks 3 days gestation. Her EDC was noted to be November 04, 2018. Her care was obtained through [facility] in essentially unremarkable. Discharge Summary-OBS Procedures 1. Epidural per anesthesia 2. Spontaneous vaginal delivery Discharge Physical Examination Allergies: Coded Allergies: No Known Drug Allergies (Unverified , 10/31/18) Vitals & I&Os Intake and Output 11/01/18 00:00 Intake Total 2220 ml Balance 2220 ml Vital Sign - Last 12Hours Date Time Temp Pulse Resp B/P (MAP) Pulse Ox O2 Delivery O2 Flow Rate FiO2 11/01/18 03:11 97.4 56 16 97/49 (65) 10/31/18 18:00 100 Room Air General Appearance: No Acute Distress HEENT: Mucous Memb Moist/[place] Respiratory: Clear to Auscultation Cardiovascular: Regular Rate Abdominal: Normal Bowel Sounds, Soft (With uterus firm) Hospital Course She was admitted in the morning of October 31, 2018 for induction of labor. Patient underwent amniotomy with placement of scalp electrode. Fluid was noted to be clear but minimal. monitoring remained reactive throughout the course of labor. She did receive epidural per anesthesia. She did require Pitocin augmentation. Ultimately she went on to completion and delivered a term viable female at 1813. Infant received Apgars of 9 at 1 minute and 9 at 5 minutes. Following delivery patient underwent routine care orders. She was noted to have no complications during the remainder hospital stay. She was noted to have hemoglobin the morning after delivery of 9.5 compared to 10.4 on admission. She felt ready for dismissal after 24 hours. She did not have any chest pain or shortness of breath. There was no leg pain. She tolerated regular diet. She will follow up with Dr. Cummings in 6 weeks at [facility] Labs Laboratory Tests 11/01/18 05:50: White Blood Count 9.1, Red Blood Count 3.22L, Hemoglobin 9.5L, Hematocrit 29L, Mean Corpuscular Volume 91, Mean Corpuscular Hemoglobin 30, Mean Corpuscular Hemoglobin Concent 32, Red Cell Distribution Width 14.9H, Platelet Count 109L, Mean Platelet Volume 11.6H, Neutrophils (%) (Auto) 67, Lymphocytes (%) (Auto) 24 , Monocytes (%) (Auto) 8, Eosinophils (%) (Auto) 1, Basophils (%) (Auto) 0, Neutrophils # (Auto) 6.1, Lymphocytes # (Auto) 2.2, Monocytes # (Auto) 0.8, Eosinophils # (Auto) 0.1, Basophils # (Auto) 0.0 Discharge Instructions to patient/family Please see electronic discharge instructions given to patient. Discharge Medications Reviewed and agree with Discharge Medication list on patient's Discharge Instruction sheet Clinical Quality Measures DVT/VTE Risk/Contraindication: Risk Factor Score Per Nursin RFS Level Per Nursing on Admit: 1=Low/No VTE PPX SUZI CUMMINGS MD Nov 01, 2018 07:32
[2018-11-01] MEDS ORDERED: IBUP-844 PO (07:34)
--- NOTE | 2018-11-01 07:35 | Discharge Inst-Women's Service ---
Discharge Inst-Women's Serv Depart Medication/Instructions New, Converted or Re-Newed RX: Transmitted to Pharmacy ([facility] [address]) Consults/Follow Up Additional Follow Up: Yes (Dr Cummings in 6 weeks.) Activity Activity: Activity as Tolerated Driving Instructions: No Driving for 1 Week Nothing Inside Vagina: No [place] (for 6 weeks) Diet Discharge Diet: Regular Diet Return to The Hospital For: as below Symptoms to Report to : Bleeding Excessive, Fever Over 101 Degrees F, Vaginal Discharge Foul For Any Problems or Questions: Contact Your Physician SUZI CUMMINGS MD Nov 01, 2018 07:35
[2018-11-01 09:39] VITALS: BP 113/59
--- NOTE | 2018-11-01 09:39 | NUR ---
AM shift assessment completed and vital signs obtained, see interventions. Plan of care reviewed with patient. Patient verbalizes understanding and questions answered. Shower supplies provided. IV DC'd, tip intact. Scheduled Motrin PO given.
[2018-11-01 12:27] VITALS: BP 106/52
--- NOTE | 2018-11-01 13:53 | NUR ---
Discharge instructions reviewed with patient both written and verbally. Patient verbalizes understanding and questions answered. Prescription e-scribed to [facility] by Dr. Kovacs.
--- NOTE | 2018-11-01 14:16 | Anesthesia-Regional Post-Op ---
Regional Patient Condition Mental Status: Alert, Oriented x3 Circulation: Same as Pre-Op Headache: Absent Sensation: Full Recovery Motor Block: Absent Post Op Complications Complications None Follow Up Care/Instructions Patient Instructions None needed. Anesthesia/Patient Condition Patient is doing well, no complaints, stable vital signs, no apparent adverse anesthesia problems. VIDHI PARKS DO Nov 01, 2018 14:16
[2018-11-01 15:47] VITALS: BP 111/55
--- NOTE | 2018-11-01 20:00 | NUR ---
Pt. left [facility] ambulatory per request, escorted by SO & , & Maddison Caban RN. To home via private vehicle. D/C instructions & pt's belongings w/pt. Pt. & SO both properly secured in vehicle w/safety belts.
== END 2018-11-01 20:00 | disposition home or self-care (01) | DRG 807 ==
LOC: LDRP 05:53
PROVIDERS: ADMIT Family Medicine; ATTEND Family Medicine
PROC: 10E0XZZ Delivery of Products of Conception, External Approach (ICD-10-PCS; principal; 2018-10-31)
PROC: 10907ZC Drainage of Amniotic Fluid, Therapeutic from Products of Conception, Via Natural or Artificial Opening (ICD-10-PCS; 2018-10-31)
DX: O99.824 Streptococcus B carrier state complicating childbirth (principal); Z37.0 Single live birth; Z3A.39 39 weeks gestation of pregnancy
CPT/HCPCS: 36415; 85025; 86850; 86900; 86901

== ENCOUNTER 2019-03-02 07:29 | Emergency (ER) | payer MEDICAID ==
[~2019-03-02] VITALS: Ht 172.7 cm; Wt 104.3 kg
[~2019-03-02 07:29] MED LIST changes: +IBUP-844 PO
--- NOTE | 2019-03-02 07:49 | ED GI ---
General Chief Complaint: Abdominal/GI Problems Stated Complaint: THROWING UP,CLAMMY,SHAKY Source of Information: Patient Exam Limitations: No Limitations History of Present Illness Date Seen by Provider: Mar 02, 2019 Time Seen by Provider: 07:32 Initial Comments Patient presents to the ER from work with her boyfriend and chief complaint that both in the last couple days of gotten sick with a productive sometimes cough and no fevers or chills. Today however she's had multiple bouts of emesis not related to coughing. Her boyfriend does as well. She does not have a history of asthma, COPD, smoking. She started off with a runny nose, cough, general malaise and now has nausea vomiting and a little bit of loose stools. Her son is just getting over all the same symptoms and had it for about a week. No significant medical problems. Does not take any medications. Allergies and Home Medications Allergies Coded Allergies: No Known Drug Allergies (Unverified , 10/31/18) Home Medications Ibuprofen 600 Mg Tablet, 600 MG PO Q6H Prescribed by: SUZI CUMMINGS on 11/01/18 0734 Vit W-Ca,Fe,FA(<1 mg) 1 Each Tablet, 1 EACH PO DAILY, (Reported) Patient Home Medication List Home Medication List Reviewed: Yes Review of Systems Review of Systems Constitutional: No chills, No fever; malaise EENTM: No Blurred Vision, No Double Vision Respiratory: Cough; Denies Shortness of Air, Denies Wheezing Cardiovascular: Denies Chest Pain, Denies Edema Gastrointestinal: Denies Constipated; Diarrhea, Nausea, Poor Fluid Intake, Vomiting Genitourinary: Denies Burning, Denies Drainage Musculoskeletal: No back pain, No joint pain Past Hrfxcjk-Ziznee-Iubxmj Hx Patient Social History Alcohol Use: Denies Use Recreational Drug Use: No Smoking Status: Never a Smoker Recent Foreign Travel: No Contact w/Someone Who Travel: No Recent Hopitalizations: Yes (2009 for gb ) Immunizations Up To Date Tetanus Booster (TDap): Less than 5yrs PED Vaccines UTD: Yes Date of Influenza Vaccine: Jul 31, 2018 Seasonal Allergies Seasonal Allergies: No Past Medical History Surgeries: Yes (gb 2009, D&C) Respiratory: No Cardiac: No Neurological: No Reproductive Disorders: No Female Reproductive Disorders: Denies Sexually Transmitted Disease: No HIV/AIDS: No Genitourinary: No Gastrointestinal: Yes Gastroesophageal Reflux, Gall Bladder Disease Musculoskeletal: No Endocrine: No HEENT: No Loss of Vision: Denies Hearing Impairment: Denies Cancer: No Psychosocial: No Integumentary: No Blood Disorders: Yes (low platlets. ) Adverse Reaction/Blood Tranf: No Family Medical History Cataract MATERNAL GRANDMA Dementia PATERNAL GRANDMA Family history: Arthritis MATERNAL GRANDMA Family history: Asthma 03 FATHER PATERNAL GRANDMA Family history: Diabetes mellitus MATERNAL GRANDMA Family history: Hypertension MATERNAL GRANDMA Hypercholesterolemia MATERNAL GRANDMA No Family History of: Abdominal aortic aneurysm Sumner's disease Alcoholism Aphasia Cancer Cancer of colon Chest pain Congenital heart disease Congestive heart failure Cystic fibrosis Dysphagia Family history: Allergy Family history: Alzheimer's disease Family history: Breast disease Family history: Cardiovascular disease Family history: Coronary thrombosis Family history: Gastrointestinal disease Family history: Glaucoma Family history: Osteoporosis Family history: Thyroid disorder Headache Hearing loss Heart disease Hereditary disease History of - anemia History of - disorder History of - respiratory disease History of drug abuse Human immunodeficiency virus (HIV) seropositivity Infertile Kidney disease Malignant neoplasm of lung Myocardial infarction Parkinson's disease Prostate cancer Psychotic disorder Seizure disorder Stroke Tuberculosis Visual impairment No Pertinent Family Hx Physical Exam Vital Signs Capillary Refill : Height/Weight/BMI Height: 5'8.00" Weight: 282lbs. 6.0oz. 128.799290im; 42.9 BMI Method:Stated General Appearance: WD/WN, no apparent distress HEENT: PERRL/EOMI, normal ENT inspection, TMs normal; No pharynx normal (oropharynx is dry) Neck: non-tender, full range of motion, supple, normal inspection Respiratory: lungs clear, normal breath sounds, no respiratory distress, no accessory muscle use Cardiovascular: normal peripheral pulses, regular rate, rhythm, no edema Peripheral Pulses: 2+ Radial Pulses (R), 2+ Radial Pulses (L) Extremities: normal range of motion, normal capillary refill Neurologic/Psychiatric: alert, normal mood/affect, oriented x 3 Skin: normal color, warm/dry Progress/Results/Core Measures Results/Orders My Orders Orders - IMAN BELTRE Ua Culture If Indicated (03/02/19 07:31) Progress Progress Note : Time: 07:46 Progress Note Well-appearing adult with no risk factors for lung disease and normal vital signs. Lungs sound clear. We have encouraged her to do conservative care therapy, hand hygiene and will send her a prescription for nausea medicine as well as suppressant. She does not have to go back to work till Tuesday. We have given her return precautions. Departure Impression Primary Impression: Viral upper respiratory tract infection with cough Additional Impression: Viral gastroenteritis Disposition: 01 HOME, SELF-CARE Condition: Stable Departure-Patient Inst. Decision time for Depature: 07:47 Referrals: NO,LOCAL PHYSICIAN (PCP/Family) Primary Care Physician Patient Instructions: Viral Gastroenteritis, Adult (DC), Cough in Adults Add. Discharge Instructions: Drink plenty of fluids. Avoid caffeine or alcohol. Use vapor rubs such as Vicks or Mentholatum as well as Mucinex for your cough. If your cough keeping him up at night you can use the Tessalon Perles 1-2 capsules every 6 hours as needed. If you have nausea or vomiting take one tablet of Zofran every 6 hours as needed. If your diarrhea is watery and persists for more than a day or 2 or your having a hard time keeping up with your fluid intake then you can start Imodium 2 capsules initially followed by one capsule every 4 hours afterwards if you're still having watery stools. If your symptoms persist for more than 7-10 days then you should follow-up with a primary care doctor for reevaluation. All discharge instructions reviewed with patient and/or family. Voiced understanding. Scripts Ondansetron (Ondansetron Odt) 4 Mg Tab.rapdis 4 MG PO Q6H PRN for NAUSEA/VOMITING, #10 TAB 0 Refills Prov: IMAN BELTRE 03/02/19 Benzonatate (Tessalon Perle) 100 Mg Capsule 100 MG PO Q6H PRN for COUGH, #20 CAP 0 Refills Prov: IMAN BELTRE 03/02/19 Work/School Note: Work Release Form Date Seen in the Emergency Department: Mar 02, 2019 Return to Work: Mar 05, 2019 Restrictions: No Restrictions IMAN BELTRE Mar 02, 2019 07:49
[2019-03-02] MEDS ORDERED: BENZ-13 PO (07:50)
[2019-03-02] MEDS ORDERED: ONDA4TAB11 PO (07:50)
[2019-03-02 07:57] VITALS: BP 120/65
== END 2019-03-02 07:57 | disposition home or self-care (01) ==
LOC: EDUNIT# 07:29 → ER 07:30
DX: J06.9 Acute upper respiratory infection, unspecified (principal); A08.4 Viral intestinal infection, unspecified; K21.9 Gastro-esophageal reflux disease without esophagitis; Z98.890 Other specified postprocedural states; Z87.19 Personal history of other diseases of the digestive system; Z82.49 Family history of ischemic heart disease and other diseases of the circulatory system
CPT/HCPCS: 99282

== ENCOUNTER 2019-04-05 09:35 | Emergency (ER) | payer MEDICAID | END 2019-04-05 10:25 | disposition home or self-care (01) | LOC: ER 09:35 ==